=== PATIENT | female | born 1990 | race Caucasian/White ===

== ENCOUNTER 2016-09-22 14:38 | Inpatient (IN) ==
[2016-09-22] MEDS ORDERED: miSOPROStol 25 MCG TABLET PO PRN (14:57)
[2016-09-22] MEDS ORDERED: Ondansetron 4 MG/2 ML VIAL IVP PRN (14:58)
[2016-09-22] MEDS ORDERED: Famotidine 20 MG/2 ML VIAL IVP PRN (14:58)
[2016-09-22] MEDS ORDERED: Naloxone 0.4 MG/ML INJ IVP PRN (14:58)
[2016-09-22] MEDS ORDERED: Metoclopramide 10 MG/2 ML VIAL IVP PRN (14:58)
[2016-09-22] MEDS ORDERED: Oxytocin 20 units/ LR 1000 mL 20 UNIT/1,000 ML BAG IVC SCH (15:00)
[2016-09-22 15:43] LABS: Basophils % 0.2 %; Eosinophils # 0.2 K/mcL (0.0-0.6); Eosinophils % 1.3 %; Hematocrit 41.5 % (35.3-44.9); Hemoglobin 13.8 g/dL (11.5-15.4); Immature Granulocytes % 0.7 % (0-4); Mean Corpuscular HGB Conc 33.3 g/dL (31.6-35.5); Mean Corpuscular Hemoglobin 27.4 pg (28.0-33.3); Mean Corpuscular Volume 82.5 fL (83.0-100.0); Mean Platelet Volume 12.3 fL (9.4-12.4); Monocytes # 0.9 K/mcL (0.0-1.3); Platelet Count 167 K/mcL (140-400); Red Blood Count 5.03 M/mcL (3.82-4.97); Red Cell Distribution Width 13.6 % (11.5-14.5); Segmented Neutrophils % 78.8 %
[2016-09-22 15:46] LABS: Bilirubin,Urine Negative (Negative); Blood,Urine Negative (Negative); Clarity,Urine Cloudy (Clear); Color,Urine Yellow (Yellow); Glucose,Urine (UA) Normal (Normal); Ketones,Urine Negative (Negative); Leukocyte Esterase,Urine Moderate (Negative); Nitrite,Urine Negative (Negative); Protein,Urine Negative (Neg-Trace); Specific Gravity,Urine 1.009 (1.010-1.025); Urobilinogen,Urine Normal (Normal)
[2016-09-22 15:48] LABS: Bacteria,Urine Few per hpf (None-Few); Hyaline Casts,Urine None Seen per lpf (None-Few); RBC,Urine 0-3 per hpf (0-3); Squamous Epithelial Cell,Urine Many per lpf (None-Few); WBC,Urine 0-3 per hpf (0-3)
[2016-09-22 15:55] LABS: Alanine Aminotransferase 12 Units/L (0-55); Aspartate Amino Transferase 13 Units/L (5-34); BUN/Creatinine Ratio 12 (6-26); Blood Urea Nitrogen 7 mg/dL (7-20); Lactate Dehydrogenase 163 Units/L (159-327); Uric Acid 4.2 mg/dL (2.6-6.0); eGFR For African Americans > 60 (> 60); eGFR For Non-African Americans > 60 (> 60)
--- NOTE | 2016-09-22 16:17 | OB/GYN History & Physical ---
Date of Encounter: 09/22/16 Time of Encounter: 16:08 Assessment and Plan (1) 40 weeks gestation of Current visit: Yes Status: Acute Patient did have elevated blood pressure in office, but current blood pressure is 122/73. Patient states last meal was at lunch and would like some dinner so will allow patient to eat and then start Cytotec induction. Induction of labor with Cytotec and Su placement Regular meal 1 followed by clear liquid diet Epidural if desired Anticipate (2) Elevated blood pressure affecting in third trimester, antepartum Current visit: Yes Status: Acute History of Present Illness Chief complaint: Induction of labor HPI: Ms. Cotter is a 26 year old female sent from office for induction of labor due to elevated blood pressure and post-EDC. uncomplicated. Patient states occasional contractions, denies vaginal bleeding or leaking of fluid, endorses good movement. Labs: A-, GBS negative, rubella nonimmune, all other serologies negative Past Med Surg Social Fam HX - Past Medical History Medical history: no medical history Psychiatric history: no psych history - Past Surgical History Surgical History: other - Social History Smoking Status: Never smoker Smokeless Tobacco Status: No Alcohol use: none Drug use: none - Family History Mother Age: 48 Living Status: Still Living Hx Family Cardiac Disorders: No Hx Family Respiratory Disorders: No Hx Family Cancer: Yes (skin cancer) Hx Family GI Disorders: No Hx Family Genitourinary Disorders: No Hx Family Endocrine Disorder: No Hx Family Musculoskeletal Disorders: No Hx Family Neuromuscular Disorders: No Hx Family Neurologic Disorders: No Hx Family HEENT Disorders: No Hx Family Autoimmune Disorders: No Hx Family Reproductive Disorders: No Hx Family Psychosocial Disorders: No Hx Family Medical Disorders: No Obstetrical History - Pregnancies : 2 Para: 0 Term: 0 : 0 Ab's: 0 Livin Medications and Allergies Vit Calc,Iron,Folic [ Vitamins] 1 / PO DAILY 09/22/16 [History] Allergies No Known Allergies Allergy (Verified 09/22/16 15:40) Review of System OB All systems PM: reviewed and no additional remarkable complaints except as stated Exam - Vital Signs Vital signs: Initial Vital Signs Temp Pulse Resp BP 98.4 F 96 12 122/73 09/22/16 15:46 09/22/16 15:46 09/22/16 15:46 09/22/16 15:46 - Constitutional Constitutional: well developed, well nourished, no acute distress - Neck Neck exam: full ROM - Lungs Respiratory exam: CTAB - Cardiovascular Cardiovascular exam: RRR, +S1, +S2 - Abdomen Abdomen: Present: bowel sounds normal, gravid, non tender - Comments Comments: in office. Results Result Diagrams: 09/22/16 15:20 09/22/16 15:20 Abnormal lab results WBC 15.2 K/mcL (4.3-11.1) H 09/22/16 15:20 RBC 5.03 M/mcL (3.82-4.97) H 09/22/16 15:20 MCV 82.5 fL (83.0-100.0) L 09/22/16 15:20 MCH 27.4 pg (28.0-33.3) L 09/22/16 15:20 Neutrophils # 12.0 K/mcL (1.6-8.9) H 09/22/16 15:20 Urine Clarity Cloudy (Clear) A 09/22/16 15:20 Ur Specific [place] 1.009 (1.010-1.025) L 09/22/16 15:20 Ur Leukocyte Esterase Moderate (Negative) H 09/22/16 15:20 Ur Squamous Epith Cells Many per lpf (None-Few) H 09/22/16 15:20 Ur Culture Indicated? YES (NO) A 09/22/16 15:20 All other labs normal. - VTE Reasons for not Prescribing Prophylaxis: Treatment not Indicated - Low risk for VTE
[2016-09-22] MEDS ORDERED: Ringers Solution, Lactated 1,000 ML ONE (16:26)
[2016-09-22] MEDS: Ringers Solution, Lactated 1,000 ML IVC SCH (16:31)
--- NOTE | 2016-09-22 17:38 | Anesthesia Evaluation PreOp ---
Date of Encounter: 09/22/16 Time of Encounter: 17:36 - Past History Planned Operation: TALA Cardiac History: HTN (PIH) Pulmonary History: Denies Any Significant HX DIGITAL MARKETING ASSISTANT History: Denies Any Significant HX Other Medical History: Denies Any Significant HX Anesthesia History: No Prior Anesthetic Complications, Past Anesthesia (tonsils/ adenoids) : Yes (, 40 plus 1) Alcohol Use: none Drug use: none Medications and Allergies Vit Calc,Iron,Folic [ Vitamins] 1 / PO DAILY 09/22/16 [History] Allergies No Known Allergies Allergy (Verified 09/22/16 15:40) - Meds/Allergy Pre-op Review Medications Reviewed: Yes Allergies Reviewed: Yes Beta Blockers on Current Med List: No Anesthesia Results - Labs 09/22/16 15:20 09/22/16 15:20 Anesthesia Exam O2 Sat Height 1.57 m Height 1.57 m Weight 95.5 kg Weight 95.5 kg Vital Signs Temp Pulse Resp BP 98.4 F 96 12 122/73 09/22/16 15:46 09/22/16 15:46 09/22/16 15:46 09/22/16 15:46 Height: 62 Weight: 95 - HEENT Pupil (Motor): Pupils equal Mallampati: II Oral Opening: Greater than 3 - DIGITAL MARKETING ASSISTANT LOC: Oriented DIGITAL MARKETING ASSISTANT Motor: Normal RUE, Normal LUE, Normal RLE, Normal LLE, Normal Face DIGITAL MARKETING ASSISTANT Sensory: Normal: RUE, LUE, RLE, LLE, Face - Cardiac Rhythm: Regular Murmur: None JVD: No Carotid Bruit: No - Pulmonary Breath Sounds: bilateral Clear Respiratory Effort: Symmetrical Anesthesia Assess/Plan ASA Score: 2 Modified [place] Scale for Level of Consciousness: Cooperative, oriented, and tranquil Anesthetic Plan: Regional Autologous Blood: No Monitoring Plan: Standard Monitors
--- NOTE | 2016-09-22 20:24 | OB Labor Progress Note ---
Date of Encounter: 09/22/16 Time of Encounter: 20:21 Labor Progress Note - Cervix Cervix: 3/75/-2 - Heart Tones Heart Tones: 135/+accels/-decels/ Cat 1 - Interventions Interventions: Su placed without difficulty, - Plan Plan: has dilated to 3 cm will monitor contractions, prior to initiating Cytotec Continue continuous monitoring Clear liquid diet Epidural as desired Anticipate
[2016-09-23] MEDS ORDERED: miSOPROStol 25 MCG TABLET VG PRN (00:01)
[2016-09-23] MEDS: Ringers Solution, Lactated 1,000 ML IVC SCH ×2 (01:30→09:14)
[2016-09-23] MEDS ORDERED: *HR* FentaNYL (PF) 100 MCG/2 ML VIAL ONE (09:35)
[2016-09-23] MEDS ORDERED: Bupivacaine-MPF 0.25% 10 ML VIAL ONE (09:36)
[2016-09-23] MEDS ORDERED: Epidural Premix (fent/bupiv) 110 ML EP ONE (09:36)
--- NOTE | 2016-09-23 10:16 | Anesthesia Procedures ---
Date of Encounter: 09/23/16 Time of Encounter: 09:58 (time of cath placement) Procedures: Anesthesia - Epidural/Spinal Patient ID/Chart reviewed: Yes Patient examined: Yes OB Eval: Gestational age: 40 weeks 2 days OB Eval: : 2 OB Eval: Hx Para: 0 OB Eval: Dilated at (cm): 4 OB Eval: Contractions: Non-stressed pattern Consent Obtained: Yes Supplemental Oxygen: None/Room Air Site Prep: Aseptic Technique, Sterile prep and drape, Povidone-Iodine 1% Patient position: upright Local Anesthetic: Lidocaine 1% Amount of Local Anesthetic used: 3 Touhy Needle Gauge: 18 Touhy Needle Depth (cm): 7 Catheter Depth at Skin (cm): 14 Test Dose (1.5% Lido + Epi): Volume given (mls): 5 (given in 2 equally divided doses over a period of 5 min) Test Dose Result: Negative Loading Dose: 0.25% Marcaine (mls): 5 Loading Dose: Fentanyl (mcg): 100 Loading Dose Administered: Thru Catheter Infusion Med: 0.125% Bupivacaine w/ 2 mcg/ml Fentanyl Infusion Rate (mls/hr): 12 (demand bolus of 4mL q20min PRN) Catheter Secured in Place: Tegaderm, Tape Interspace Used: L3-L4 Loss of Resistance (KALIN): Yes Blood: No CSF: No Paresthesia: No Vitals + FHT's: please see L&D RN's electronic documentation for vital signs
--- NOTE | 2016-09-23 12:13 | OB Labor Progress Note ---
Date of Encounter: 09/23/16 Time of Encounter: 12:09 Labor Progress Note - Subjective Subjective: Patient sitting comfortably in bed with epidural in place. - Cervix Cervix: 6/80/-1 soft mid-position membranes intact - Heart Tones Heart Tones: FHR baseline 140's with early decelerations 15x15 accels - [place]: contractions every 2-4minutes 60-90 seconds in length; contractions palpate moderate, uterus soft between contractions. - Interventions Interventions: SROM for moderate clear fluid. patient and fetus tolerated well. - Plan Plan: Continue expectant management GBS negative Pitocin running at 6mu/min Expect vaginal delivery Dr Castellon updated on patient's status.
--- NOTE | 2016-09-23 14:42 | OB/GYN Procedure Note ---
Delivery - Delivery Date: 09/23/16 Provider: Beckie Castellon (Zaheer Greene, [facility] delivered) Intrapartum events: none Delivery induction: potter, misoprostol Delivery augmentation: rupture of membranes, pitocin Delivery monitor: external FHT, external uterine Anesthesia: epidural Estimated Blood Loss: 150 - Infant (s) A Delivery Date: 09/23/16 Delivery Time: 14:09 Presentation: vertex Position: SHAUNNA Route of delivery: Gender: Male Viability: Viable Pounds: 8 Ounces: 9 Weight Gram: 3430 kg at 1 minute: 8 at 5 mins: 9 Shoulder Dystocia: not encountered Specimens collected: cord blood Placenta: spontaneous Cord: nuchal cord, 3 umbilical vessels, nuchal reduced - Repair Episiotomy: none Laceration Description: Perineal - 2nd Degree - Complications Delivery complications: none Delivery comments: of male over 2nd degree perineum. Loose nuchal cord reduced on perineum. No shoulder dystocia encountered, shoulders delivered easily. Infant placed on maternal abdomen with apgars of 8 & 9 at 1 and 5 minutes of age. Cord clamped and cut after pulsating ceased. Spontaneous placental delivery. Placenta appears grossly intact with 3 vessel cord. 2nd degree repaired with 3-0 vicryl. Fundus firm and midline with moderate lochia. Mother and in recovery and stable. Dr Castellon observed delivery. - Disposition Mom disposition: stable in LDR [place] disposition: stable in LDR
[2016-09-23] MEDS ORDERED: Bupivacaine-MPF 0.25% 10 ML VIAL EP ONE (15:26)
[2016-09-23] MEDS ORDERED: *HR* FentaNYL (PF) 100 MCG/2 ML VIAL EP ONE (15:26)
[2016-09-23] MEDS ORDERED: Epidural Premix (fent/bupiv) 110 ML EP SCH (15:30)
[2016-09-23] MEDS ORDERED: Acetaminophen 325 MG TABLET PO PRN (15:46)
[2016-09-23] MEDS ORDERED: Measles/Mumps/Rubella Vacc 0.5 ML VIAL SQ PRN (15:46)
[2016-09-23] MEDS ORDERED: Rho Immune Globulin 1,500 UNIT SYRINGE IM PRN (15:46)
[2016-09-23] MEDS ORDERED: Oxytocin 20 units/ LR 1000 mL 20 UNIT/1,000 ML BAG IVC SCH (15:46)
[2016-09-23] MEDS ORDERED: miSOPROStol 100 MCG TABLET PO STA (17:48)
[2016-09-23] MEDS: Ibuprofen 600 MG TABLET PO PRN (20:21)
--- NOTE | 2016-09-24 08:13 | Discharge Summary ---
Date of Encounter: 09/24/16 Time of Encounter: 08:12 - Discharge Diagnosis (1) 40 weeks gestation of Priority: Primary Status: Resolved (2) Elevated blood pressure affecting in third trimester, antepartum Priority: Secondary Status: Resolved - Discharge Medications Home Medications: Vit Calc,Iron,Folic [ Vitamins] 1 / PO DAILY 09/22/16 [History] Allergies/Adverse Reactions: Allergies No Known Allergies Allergy (Verified 09/22/16 15:40) Data Procedures and tests throughout hospitalization: Laboratory Tests 09/22/16 09/22/16 09/22/16 15:20 15:20 15:20 WBC 15.2 H RBC 5.03 H Hgb 13.8 Hct 41.5 MCV 82.5 L MCH 27.4 L MCHC 33.3 RDW 13.6 Plt Count 167 MPV 12.3 Immature Gran % 0.7 Seg Neutrophils % 78.8 Lymphocytes % 13.0 Monocytes % 6.0 Eosinophils % 1.3 Basophils % 0.2 Neutrophils # 12.0 H Lymphocytes # 2.0 Monocytes # 0.9 Eosinophils # 0.2 Basophils # 0.0 BUN 7 Creatinine 0.58 Est GFR ( Amer) > 60 Est GFR (Non-Af Amer) > 60 BUN/Creatinine Ratio 12 Uric Acid 4.2 AST 13 ALT 12 Lactate Dehydrogenase 163 Urine Color Yellow Urine Clarity Cloudy A Urine pH 7.0 Ur Specific [place] 1.009 L Urine Protein Negative Urine Glucose (UA) Normal Urine Ketones Negative Urine Blood Negative Urine Nitrite Negative Urine Bilirubin Negative Urine Urobilinogen Normal Ur Leukocyte Esterase Moderate H Urine Microscopic RBC 0-3 Urine Microscopic WBC 0-3 Ur Squamous Epith Cells Many H Urine Bacteria Few Hyaline Casts None Seen Ur Culture Indicated? YES A Date of admission: 09/22/16 14:38 Primary care physician: Lavern Dee MD Consults: 09/23/16 15:46 Consult to Anatomy Professor [CONS] Routine Comment: Vaginal delivery, consult needed - Patient Status Disposition: Home, Self-Care Condition: Good Functional capacity at discharge: independent ambulation Overall status at discharge: patient is progressing back to baseline - Discharge Instructions Follow Up With: Lavern Dee MD [Primary Care Provider] - - Diet and Activity Activity: increase activity as tolerated Diet: advance to your usual diet Hospital Course Reason for admission: induction of labor Delivery: Episiotomy: none Other procedures: none complications: none Discharge diagnosis: IUP at term delivered [place] baby: male Time Attestation: Total time spent providing and/or coordinating discharge services: Exam - Constitutional Vitals: Temp Pulse Resp BP Pulse Ox 97.8 F 100 16 109/68 98 09/24/16 08:07 09/24/16 08:07 09/24/16 08:07 09/24/16 08:07 09/24/16 08:07 General appearance IM: A&O X 3 - Respiratory Respiratory exam: Present: CTAB - Cardiovascular Cardiovascular exam IM: Present: RRR - GI/Abdominal GI/Abdominal exam IM: normal bowel sounds - Rectal Rectal exam: deferred - Uterus Position: 2 Fingers Below Umbilicus - Extremities Exam Extremities exam IM: Present: full ROM - Neurological Exam Neurological exam: CN II-XII intact - Attending Attestation emre evans md facog
[2016-09-24] MEDS ORDERED: Prenatal Vit/FA 1 EACH TABLET PO SCH (09:00)
[2016-09-24] MEDS: Ibuprofen 600 MG TABLET PO PRN (12:58)
[2016-09-26 08:18] VITALS: BP 109/68
== END 2016-09-24 15:50 | disposition home or self-care (01) | DRG 775 ==
LOC: 1NENULAB 14:38 → 1NENUOBS 09-23 16:08

== ENCOUNTER 2019-10-02 01:23 | Inpatient (IN) ==
[~2019-10-02 01:23] MED LIST: Lidocaine 1% 20 ML MDV ONE; Naloxone 0.4 MG/ML INJ IVP PRN; Oxytocin 20 units/ LR 1000 mL 20 UNIT/1,000 ML BAG IVC ONE
[2019-10-02] MEDS ORDERED: Acetaminophen 325 MG TABLET PO PRN ×2 (01:24→08:06)
[2019-10-02] MEDS ORDERED: Benzocaine/Menthol 56 GM AEROSOL SPRAY TP PRN ×2 (01:24→08:06)
[2019-10-02] MEDS ORDERED: Ibuprofen 600 MG TABLET PO PRN ×2 (01:24→08:06)
[2019-10-02] MEDS ORDERED: *HR* HYDROcodone/Acet 5/325 mg TABLET PO PRN ×2 (01:24→08:06)
[2019-10-02] MEDS ORDERED: Rho Immune Globulin 1,500 UNIT SYRINGE IM PRN ×2 (01:24→08:06)
[2019-10-02] MEDS ORDERED: Oxytocin 20 units/ LR 1000 mL 20 UNIT/1,000 ML BAG IVC SCH ×2 (01:30→08:06)
[2019-10-02 05:17] LABS: Basophils % 0.1 %; Eosinophils % 0.1 %; Hematocrit 37.5 % (35.3-44.9); Hemoglobin 11.6 g/dL (11.5-15.4); Immature Granulocytes % 0.8 % (0-4); Lymphocytes # 1.1 K/mcL (0.6-4.6); Mean Corpuscular HGB Conc 30.9 g/dL (31.6-35.5); Mean Corpuscular Hemoglobin 24.9 pg (28.0-33.3); Mean Corpuscular Volume 80.6 fL (83.0-100.0); Mean Platelet Volume 12.2 fL (9.4-12.4); Monocytes # 0.9 K/mcL (0.0-1.3); Monocytes % 4.3 %; Platelet Count 165 K/mcL (140-400); Red Blood Count 4.65 M/mcL (3.82-4.97); Red Cell Distribution Width 14.3 % (11.5-14.5); Segmented Neutrophils % 89.7 %; White Blood Count 21.2 K/mcL (4.3-11.1)
[2019-10-02 05:52] LABS: Hepatitis B Surface Antigen Nonreactive (Nonreactive)
[2019-10-02 06:20] LABS: Hepatitis C Virus Antibody Nonreactive (Nonreactive)
[2019-10-02 06:21] LABS: HIV-1&2 Antibody & p24 Ag Nonreactive (Nonreactive)
[2019-10-02 06:24] VITALS: BP 115/70
[2019-10-02] MEDS ORDERED: Naloxone 0.4 MG/ML INJ IVP PRN (08:06)
[2019-10-02] MEDS ORDERED: Prenatal Vit/FA 1 EACH TABLET PO SCH ×2 (09:00)
[2019-10-04 12:08] LABS: HTLV I/II Antibodies by ELISA NEGATIVE (Negative)
== END 2019-10-02 11:43 | disposition home or self-care (01) | DRG 807 ==
LOC: 1NENULAB → 1NENUPED 05:44
PROVIDERS: ADMIT Obstetrics & Gynecology; ATTEND Obstetrics & Gynecology

== ENCOUNTER 2020-12-10 07:48 | Inpatient (IN) ==
[2020-12-10] MEDS ORDERED: Famotidine 20 MG/2 ML VIAL IVP ONE (08:01)
[2020-12-10] MEDS ORDERED: Oxytocin 20 units/ LR 1000 mL 20 UNIT/1,000 ML BAG IVC ONE (08:01)
[2020-12-10] MEDS ORDERED: CeFAZolin 2,000MG/50ML DUPLEX 2,000 MG/50 ML BAG IVPB ONE (08:01)
[2020-12-10] MEDS ORDERED: Metoclopramide 10 MG/2 ML VIAL IVP ONE (08:01)
[2020-12-10] MEDS ORDERED: Ringers Solution, Lactated 1,000 ML IVC SCH (08:15)
[2020-12-10] MEDS ORDERED: Oxytocin 20 units/ LR 1000 mL 20 UNIT/1,000 ML BAG IVC SCH ×2 (08:15→14:03)
[2020-12-10] MEDS ORDERED: Promethazine 6.25 MG in Water for inj. (sterile) 20 ML IVPB PRN (08:58)
[2020-12-10] MEDS ORDERED: Naloxone 0.4 MG/ML INJ IVP PRN (08:58)
[2020-12-10] MEDS ORDERED: *HR* HYDROmorphone PF 0.5 MG/0.5 ML SYRINGE IVP PRN (08:58)
[2020-12-10] MEDS ORDERED: Ondansetron 4 MG/2 ML VIAL IVP PRN ×2 (08:58→14:03)
[2020-12-10 09:41] LABS: Basophils % 0.2 %; Eosinophils # 0.1 K/mcL (0.0-0.6); Eosinophils % 0.6 %; Hematocrit 36.1 % (35.3-44.9); Hemoglobin 11.8 g/dL (11.5-15.4); Immature Granulocytes % 0.5 % (0-4); Lymphocytes % 17.2 %; Mean Corpuscular HGB Conc 32.7 g/dL (31.6-35.5); Mean Corpuscular Hemoglobin 25.9 pg (28.0-33.3); Mean Corpuscular Volume 79.2 fL (83.0-100.0); Mean Platelet Volume 11.8 fL (9.4-12.4); Monocytes # 0.8 K/mcL (0.0-1.3); Neutrophils # 8.5 K/mcL (1.6-8.9); Platelet Count 157 K/mcL (140-400); Red Blood Count 4.56 M/mcL (3.82-4.97); Red Cell Distribution Width 15.4 % (11.5-14.5); Segmented Neutrophils % 74.5 %; White Blood Count 11.5 K/mcL (4.3-11.1)
[2020-12-10] MEDS ORDERED: Metoclopramide 10 MG/2 ML VIAL IVP PRN (14:03)
[2020-12-10] MEDS ORDERED: Rho Immune Globulin 1,500 UNIT SYRINGE IM ONE (14:03)
[2020-12-10] MEDS ORDERED: Simethicone 80 MG TAB.CHEW PO PRN (14:03)
[2020-12-10] MEDS ORDERED: *HR* OxyCODONE Immed Rel 5 MG TABLET PO PRN (14:03)
[2020-12-10 14:14] LABS: Amphetamine Screen,Urine Negative ng/mL (Cutoff=1000); Barbiturate Screen,Urine Negative ng/mL (Cutoff=200); Benzodiazepines Screen,Urine Negative ng/mL (Cutoff=200); Cannabinoid Screen,Urine Negative ng/mL (Cutoff = 50); Cocaine Screen,Urine Negative ng/mL (Cutoff= 300); Opiate Screen,Urine Negative ng/mL (Cutoff=300); Phencyclidine Screen,Urine Negative ng/mL (Cutoff=25)
[2020-12-10] MEDS: Oxytocin 20 units/ LR 1000 mL 20 UNIT/1,000 ML BAG IVC SCH ×2 (15:08→21:57)
[2020-12-10] MEDS ORDERED: Ondansetron 4 MG/2 ML VIAL IVP ONE (16:09)
[2020-12-10] MEDS: Acetaminophen 325 MG TABLET PO SCH (18:00)
[2020-12-10] MEDS: Ibuprofen 600 MG TABLET PO SCH (18:00)
[2020-12-11] MEDS: Acetaminophen 325 MG TABLET PO SCH ×3 (01:33→21:07)
[2020-12-11] MEDS: Ibuprofen 600 MG TABLET PO SCH ×5 (01:33→21:07)
[2020-12-11] MEDS: Prenatal Vit/FA 1 EACH TABLET PO SCH (08:07)
[2020-12-12] MEDS: Ibuprofen 600 MG TABLET PO SCH (05:49)
[2020-12-12] MEDS: Acetaminophen 325 MG TABLET PO SCH (05:50)
[2020-12-12] MEDS: Prenatal Vit/FA 1 EACH TABLET PO SCH (07:44)
[2020-12-12 08:14] VITALS: BP 99/54
[2020-12-12] MEDS ORDERED: Rho Immune Globulin 1,500 UNIT SYRINGE IM ONE (08:46)
== END 2020-12-12 10:05 | disposition home or self-care (01) | DRG 788 ==
LOC: 1NENULAB 07:48 → 1NENUOBS 13:43
PROVIDERS: ADMIT Obstetrics & Gynecology; ATTEND Obstetrics & Gynecology